=== PATIENT | female | born 1990 | race Caucasian/White ===

== ENCOUNTER → 2017-07-26 | Outpatient (CLI) | payer BC ==
[~2017-07-26] MED LIST: ULTRAM50 MG PO
[2017-07-26 13:02] LABS: ALBUMIN 3.1 gm/dl (3.1-4.5); BILIRUBIN, DIRECT < 0.1 mg/dL (0.0-0.2); SGOT/AST 15 IU/L (3-35); SGPT/ALT 19 U/L (12-78); TOTAL PROTEIN 6.8 gm/dL (6.4-8.2)
[2017-07-26 13:16] LABS: ALKALINE PHOSPHATASE 63 U/L (45-117)
[2017-07-27 08:11] LABS: HEPATITIS B SURFACE AG Negative (Negative)
== END | disposition home or self-care (01) ==
LOC: LAB 11:50
PROVIDERS: Family Medicine
DX: F11.20 Opioid dependence, uncomplicated (principal)

== ENCOUNTER → 2017-08-16 | Outpatient (CLI) | payer BC | END | disposition home or self-care (01) | LOC: US 07-26 11:49 | DX: Z34.82 Encounter for supervision of other normal pregnancy, second trimester (principal) ==

== ENCOUNTER → 2017-10-05 | Outpatient (CLI) | payer BC | END | disposition home or self-care (01) | LOC: US 13:48 | DX: O32.1XX0 Maternal care for breech presentation, not applicable or unspecified (principal); Z3A.22 22 weeks gestation of pregnancy ==